=== PATIENT | female | born 1990 | race African-American/Black ===

== ENCOUNTER 2017-02-16 02:38 | Emergency (ER) | payer OTHER ==
[~2017-02-16] VITALS: Ht 162.6 cm; Wt 73.0 kg
[2017-02-16] MEDS ORDERED: DIAZEPAM 5 MG TABLET PO ONE (08:00)
[2017-02-16 09:10] VITALS: BP 118/68
== END 2017-02-16 09:28 | disposition home or self-care (01) ==
LOC: ER 07:54
DX: M25.512 Pain in left shoulder (principal); F17.210 Nicotine dependence, cigarettes, uncomplicated; Z88.5 Allergy status to narcotic agent; V49.9XXA Car occupant (driver) (passenger) injured in unspecified traffic accident, initial encounter; Y93.89 Activity, other specified; Y92.410 Unspecified street and highway as the place of occurrence of the external cause; Y99.8 Other external cause status
CPT/HCPCS: 73030; 81025; 99284